=== PATIENT | male | born 1975 | race Asian ===

== ENCOUNTER → 2018-05-22 | Outpatient (CLI) | payer OTHER | LOC: CIMAGING 15:12 | PROVIDERS: ATTEND Family Medicine | DX: J42 Unspecified chronic bronchitis (principal) | CPT/HCPCS: 71046-PO ==

== ENCOUNTER → 2018-08-21 | Outpatient (CLI) | payer OTHER | LOC: CIMAGING 17:25 | PROVIDERS: ATTEND Family Medicine | DX: M40.202 Unspecified kyphosis, cervical region (principal); J40 Bronchitis, not specified as acute or chronic | CPT/HCPCS: 71046-PO; 72050-PO ==